=== PATIENT | male | born 1990 ===

== ENCOUNTER 2022-11-17 08:43 | Outpatient (CLI) | payer MEDICAID, SELFPAY ==
--- NOTE | 2022-11-17 08:58 | XRR_ITS ---
PROCEDURE INFORMATION: Exam: XR Right Foot Exam date and time: 11/17/2022 9:01 AM Age: 32 years old Clinical indication: Right; Patient HX: --pain RT foot for 1 month, pain in lateral side and heel; Additional info: Pain in R foot TECHNIQUE: Imaging protocol: Radiologic exam of the Right foot. Views: 3 or more views. COMPARISON: No relevant prior studies available. FINDINGS: Bones/joints: Alignment is normal. Joint spaces are preserved. No acute fracture. Soft tissues: Visible soft tissues are unremarkable. XR/XR foot RT min 3V* [id number] IMPRESSION: No acute findings.
== END 2022-11-17 08:44 | disposition home or self-care (01) ==
PROVIDERS: PCP Family Medicine; Visit Provider Family Medicine
DX: M79.671 Pain in right foot (principal)
CPT/HCPCS: 73630